=== PATIENT | female | born 1985 | race African-American/Black ===

== ENCOUNTER 2018-01-15 19:21 | Emergency (ER) | payer OTHER ==
[~2018-01-15] VITALS: Ht 162.6 cm; Wt 94.8 kg
[2018-01-15 19:28] VITALS: BP 141/86
== END 2018-01-15 20:13 | disposition home or self-care (01) ==
LOC: ER 19:28
DX: M54.2 Cervicalgia (principal); M54.9 Dorsalgia, unspecified; V43.52XA Car driver injured in collision with other type car in traffic accident, initial encounter; Y93.89 Activity, other specified; Y92.410 Unspecified street and highway as the place of occurrence of the external cause; Y99.8 Other external cause status
CPT/HCPCS: A4606; Z7610